=== PATIENT | female | born 1985 | race Caucasian/White ===

== ENCOUNTER 2019-05-26 15:14 | Emergency (ER) | payer BC ==
[~2019-05-26] VITALS: Ht 157.5 cm; Wt 86.9 kg
[~2019-05-26 15:14] MED LIST: NITR-58 PO
[2019-05-26 15:29] VITALS: BP 146/84; PULSE 89; RESP 20; Ht 157.5 cm; Wt 86.9 kg
[2019-05-26] MEDS ORDERED: ONDANSETRON (ODT) 4 MG TAB ODT STA (16:13)
== END 2019-05-26 18:07 | disposition home or self-care (01) ==
LOC: FTE 15:14
DX: O26.891 Other specified pregnancy related conditions, first trimester (principal); R10.2 Pelvic and perineal pain; Z3A.01 Less than 8 weeks gestation of pregnancy
CPT/HCPCS: 36415; 76801; 81001; 84702; 85025; 86900; 86901; 99284; Z7610